=== PATIENT | male | born 1945 | race Caucasian/White ===

== ENCOUNTER 2019-03-29 07:33 | Day surgery (SDC) | payer OTHER ==
[2019-03-24 14:52] VITALS: BMI 29.9
--- NOTE | 2019-03-25 09:47 | HP ---
PCP: Dr. Guanako Brown, [place], [place] [phone] HISTORY OF PRESENT ILLNESS: 73 year-old male with a PMH significant for HTN, HLD, angioedema, Latham's esophagus, and BPH. He is scheduled to undergo ectropion repair of left lower eyelid with Dr. Herrera on 03/29/19. PAST MEDICAL HISTORY: Angioedema Latham's esophagus BPH Hiatal hernia Hypertension Hyperlipidemia Obesity Pulmonary nodules PAST SURGICAL HISTORY: Cataract surgery Left great toe fracture repair with instrumentation Social History: , retired Smoking: former Alcohol: 2 drinks/day Drugs: no Family history: non-contributory Allergies irbesartan [From Avapro] Allergy (Verified 03/24/19 14:30) Swelling HOME MEDICATIONS: Home Medications Medication Instructions Recorded Amlodipine Besylate [Norvasc -] 7.5 mg PO DAILY 03/24/19 Aspirin [Lo-Dose Aspirin EC] 81 mg PO DAILY 03/24/19 Atorvastatin Ca [Lipitor] 20 mg PO DAILY 03/24/19 Finasteride [Proscar -] 5 mg PO DAILY 03/24/19 Multivitamin [One-Daily 1 each PO DAILY 03/24/19 Multi-Vitamin] Omeprazole 20 mg PO DAILY 03/24/19 REVIEW OF SYSTEMS CONSTITUTIONAL: Absent: fever, chills, diaphoresis, generalized weakness, malaise, loss of appetite, weight change HEENT: Absent: rhinorrhea, nasal congestion, throat pain, throat swelling, difficulty swallowing, mouth swelling, ear pain, eye pain, visual changes CARDIOVASCULAR: Absent: chest pain, syncope, palpitations, irregular heart rate, lightheadedness , peripheral edema RESPIRATORY: Absent: cough, shortness of breath, dyspnea with exertion, orthopnea, wheezing, stridor, hemoptysis GASTROINTESTINAL: Absent: abdominal pain, abdominal distension, nausea, vomiting, diarrhea, constipation, melena, hematochezia GENITOURINARY: Absent: dysuria, frequency, urgency, hesitancy, hematuria, flank pain, genital pain MUSCULOSKELETAL: Absent: myalgia, arthralgia, joint swelling, back pain, neck pain SKIN: Absent: rash, itching, pallor HEMATOLOGIC/IMMUNOLOGIC: Absent: easy bleeding, easy bruising, lymphadenopathy, frequent infections ENDOCRINE: Absent: unexplained weight gain, unexplained weight loss, heat intolerance, cold intolerance NEUROLOGIC: Absent: headache, focal weakness or paresthesias, dizziness, unsteady gait, seizure, mental status changes, bladder or bowel incontinence PSYCHIATRIC: Absent: anxiety, depression, suicidal or homicidal ideation, hallucinations. PHYSICAL EXAMINATION Vitals: T 97.8 BP 135/77 p90 SpO2 96% on room air GENERAL: Awake, alert, and fully oriented, in no acute distress. HEAD: Normal with no signs of trauma. LUNGS: Breath sounds equal, clear to auscultation bilaterally. No wheezes, and no crackles. No accessory muscle use. HEART: Regular rate and rhythm, normal S1 and S2 ABDOMEN: Soft, nontender, not distended, normoactive bowel sounds MUSCULOSKELETAL: Normal range of motion at all joints. No bony deformities or tenderness. No CVA tenderness. UPPER EXTREMITIES: 2+ pulses, warm, well-perfused. No cyanosis. No clubbing. No peripheral edema. LOWER EXTREMITIES: 2+ pulses, warm, well-perfused. No calf tenderness. No peripheral edema. NEUROLOGICAL: Cranial nerves II-XII intact. Normal speech. Normal gait. SKIN: Warm, dry, normal turgor ASSESSMENT/PLAN: 73 year-old male with a PMH significant for HTN, HLD, angioedema, Latham's esophagus, and BPH. He is scheduled to undergo ectropion repair of left lower eyelid with Dr. Herrera on 03/29/19. History and physical from PCP Dr. Brown dated 11/04/18 reviewed. No significant change. Labs reviewed. ECG reviewed. No change in home medications. Visit type - Emergency Visit Emergency Visit: No - New Patient This patient is new to me today: Yes Date on this admission: 03/25/19 - Critical Care Critical Care patient: No
[2019-03-29] MEDS ORDERED: POVIDONE-IODINE 5% OPHTHALMIC PREP 30 ML SOLUTION ONE (10:28)
[2019-03-29] MEDS ORDERED: TETRACAINE 0.5% OPHTH SOLN 2 ML BOTTLE ONE (10:28)
[2019-03-29] MEDS ORDERED: ERYTHROMYCIN 0.5% OPHTHALMIC OINTMENT 3.5 GM TUBE ONE (10:28)
[2019-03-29] MEDS ORDERED: BUPIVACAINE HCL/PF 0.5% (5MG/ML) 10 ML VIAL ONE (10:29)
[2019-03-29] MEDS ORDERED: MIDAZOLAM HCL 2 MG/2 ML SINGLE DOSE VIAL ONE (10:48)
[2019-03-29] MEDS ORDERED: PROPOFOL 20 ML ONE (10:58)
[2019-03-29] MEDS ORDERED: ceFAZolin SODIUM 1 GM VIAL ONE (11:18)
[2019-03-29] MEDS ORDERED: DEXAMETHASONE SOD PHOSPHATE 4 MG/1 ML VIAL ONE (11:31)
[2019-03-29] MEDS ORDERED: ONDANSETRON 4 MG/2 ML VIAL ONE (11:31)
[2019-03-29] MEDS ORDERED: ONDANSETRON 4 MG/2 ML VIAL IVPUSH PRN (12:39)
[2019-03-29] MEDS ORDERED: oxyCODONE HCL 5 MG TABLET PO PRN (12:39)
[2019-03-29] MEDS ORDERED: LACTATED RINGERS SOLUTION 1,000 ML IV SCH (12:45)
[2019-03-29 13:22] VITALS: TEMP 98
[2019-03-29 13:44] VITALS: BP 139/85; PULSE 67
--- NOTE | 2019-03-29 20:57 | OP ---
DATE OF OPERATION: 03/29/2019 PREOPERATIVE DIAGNOSIS: Epiphora with laxity, infranasal conjunctivochalasis, and punctal stenosis, left lower lid. POSTOPERATIVE DIAGNOSIS: Epiphora with laxity, infranasal conjunctivochalasis, and punctal stenosis, left lower lid in addition to negative vector and prominent globes. PROCEDURES: 1. Lateral tarsal strip, left lower lid. 2. Excision of infranasal conjunctivochalasis, left. 3. Conservative punctoplasty, left lower lid. SURGEON: Waleska Spence ANESTHESIA: LMA. COMPLICATIONS: None. ESTIMATED BLOOD LOSS: 3-4 mL. OPERATIVE REPORT: Patient was brought to the operating room, placed on the operating room table. Vital signs were monitored by anesthesia. Tetracaine was placed in both eyes. The lateral canthal line was marked left lateral canthus. Patient was given intravenous sedation. Time-out was performed, and a 50/50 mixture of 2% Xylocaine, 1:100,000 epinephrine, 0.5% Marcaine was injected to the left lateral canthus down to periosteum, lateral 1/3 of the upper and lower lid, and subconjunctivally and nasally in the infranasal fornix for a total of 3 mL-4 mL. Patient was prepped and draped in the usual fashion exposing both eyes. Shortly after beginning, the patient was switched to LMA anesthesia due to his breathing. A lateral canthal incision was made in the left lateral canthus, carried down to periosteum with Lipscomb needle. The inferior viviana of the lateral canthal tendon was from the orbital rim with sharp dissection. Lid was overlapped at the orbital rim, marked with a sterile making pen. The appropriate position divided into an anterior and posterior lamella with a No. 11 blade. The anterior lamella was excised. The posterior lamella was denuded of epithelium at its distal end and posteriorly and superiorly the epithelium was removed with Kristi scissor creating a tarsal strip. This tarsal strip was then secured with double-arm 5-0 Prolene reinforced with two 6-0 Vicryl lasso sutures passed through the internal surface of the orbital rim higher than the horizontal to be symmetric with the contralateral side. It was not tied at this point, but the lid was placed on stretch demonstrating where the punctum would lie, and the small amount of inferior nasal and conjunctivochalasis was excised and cauterized to allow for obstructed flow into this punctum. The punctum was quite stenotic, and therefore, it was dilated with a punctal probe, and a small posterior snip was made slightly enlarging the punctal opening. The lateral canthal angle was reformed with a 5-0 chromic buried through the avila line of the upper and lower lid creating a new lateral canthus. The Prolene was now tied attaching the tarsal strip to the orbital rim. Excess tarsal strip, which had been trimmed, was sutured over the Prolene with a 5-0 chromic. The musculature tissues were closed with 5-0 chromic, and the skin was closed with interrupted, running 6-0 plain suture in plastic technique. Irritation with antibiotics was used throughout the case, and Lipscomb needle was used for cautery throughout the case as needed. At the close of the case, due to his proptotic appearance of the globes, erythromycin ointment was placed in the left eye around the infranasal excision, around the lateral canthus, and also in the right eye for lubrication, and the patient was awakened from anesthesia and taken to the recovery room. WALESKA SPENCE M.D. [id number]
--- NOTE | 2019-03-30 12:56 | PATH ---
Surgical Pathology Report Patient Name: REJI DOSHI [facility]. Rec. #: [id number] /Age/Gender: 1945 (Age: 73) / M Account: [id number] Location: [facility] Taken: 03/29/2019 Received: 03/29/2019 Reported: 03/30/2019 Physicians: Veto Herrera Specimen(s) Received CONJUNCTIVOCHALSIS LEFT EYE Clinical History Ectropion left lower eyelid Final Diagnosis EYE, LEFT, CONJUNCTIVOCHALASIS, REPAIR: CONJUNCTIVA SHOWING MILD ACUTE AND CHRONIC INFLAMMATION. Electronically Signed Araseli Richey M.D. Gross Description Received in formalin labeled "conjunctivochalasis left eye," are 2 cotto soft tissue fragments measuring 0.3 and 0.4 cm in greatest dimension. The specimens are submitted in toto in one cassette. /03/29/2019 saudi/03/29/2019
== END 2019-03-29 11:45 | disposition home or self-care (01) ==
LOC: FASU 07:33
PROVIDERS: ATTEND Ophthalmology
PROC: 08BTXZZ Excision of Left Conjunctiva, External Approach (ICD-10-PCS; 2019-03-29)
PROC: 08BR0ZZ Excision of Left Lower Eyelid, Open Approach (ICD-10-PCS; principal; 2019-03-29 11:16)
DX: H04.202 Unspecified epiphora, left side (principal); H11.822 Conjunctivochalasis, left eye; H04.542 Stenosis of left lacrimal canaliculi; H44.89 Other disorders of globe
CPT/HCPCS: 88304-TC; 94760